=== PATIENT | female | born 1945 | race Caucasian/White ===

== ENCOUNTER 2017-12-28 05:52 | Inpatient (IN) ==
[2017-12-28] MEDS ORDERED: Chlorhexidine Gluconate 2% 1 Pack (2 Cloths) TOPICAL SCH (06:15)
[2017-12-28] MEDS ORDERED: Metoprolol Tartrate 25 MG Tablet PO SCH (06:15)
[2017-12-28] MEDS ORDERED: Dexamethasone Inj 20 MG/5 ML Vial IV.PUSH ONE (06:18)
[2017-12-28] MEDS ORDERED: Chlorhexidine 4% Topical 120 APPLIC/120 ML Bottle TOPICAL SCH (06:30)
[2017-12-28] MEDS ORDERED: ceFAZolin 2 GM/NS 100 ML IV IV.SIG SCH ×2 (07:00)
[2017-12-28] MEDS ORDERED: Sodium Chlor 0.9% Inj 500 ML IV.SIG SCH (07:00)
[2017-12-28] MEDS ORDERED: Vancomycin Inj 1 GM/200 ML PIGGYBACK IV.SIG SCH (07:00)
[2017-12-28] MEDS ORDERED: SODIUM CHLOR 0.9% IV.SIG SCH (08:30)
[2017-12-28] MEDS ORDERED: TRANEXAMIC ACID IV.SIG SCH (08:30)
[2017-12-28] MEDS ORDERED: Sodium Chlor 0.9% Inj 73.07 ML, Ropivacaine 0.5% PF Inj 24.63 ML, Ketorolac Inj 30 MG, ... P-ARTICULR SCH ×5 (08:30)
[2017-12-28] MEDS ORDERED: Naloxone Inj 0.4 MG/ML Vial ONE (10:09)
[2017-12-28] MEDS ORDERED: FEXOFENADINE PSEUDOEPHEDRINE PO PRN (10:10)
[2017-12-28] MEDS ORDERED: Aluminum/Magnesium/Simethacone Susp 30 ML UDC PO PRN (10:14)
[2017-12-28] MEDS ORDERED: Post-op Orders (for Pharmacy) OTHER STA (10:14)
[2017-12-28] MEDS ORDERED: Morphine Inj 4 MG/ML Vial IV.PUSH PRN (10:14)
[2017-12-28] MEDS ORDERED: SODIUM CHLOR 0.9% IV.SIG ONE (10:14)
[2017-12-28] MEDS ORDERED: Bisacodyl 10 MG Supp RECTAL PRN (10:14)
[2017-12-28] MEDS ORDERED: TRANEXAMIC ACID IV.SIG ONE (10:14)
[2017-12-28] MEDS ORDERED: Sod Chloride 0.9% Inj 1,000 ML IV.CONT SCH (10:15)
--- NOTE | 2017-12-28 10:18 | P.OP ---
- Preoperative Diagnosis (1) Osteoarthritis of right knee - Postoperative Diagnosis (1) Osteoarthritis of right knee Date of procedure: 12/28/17 Procedure: Right total knee arthroplasty Surgeon: Julius Burt MD Electronics Hardware Design Engineer: MARIO Graves The surgical procedure was assisted by my Advanced Registered Nurse Practitioner. My MECHANICAL INTERN presence was necessary throughout this case for the manipulation and positioning of the surgical extremity. My MECHANICAL INTERN was assisting me throughout the duration of this procedure. The skill set of an Advance Registered Nurse Practitioner was medically necessary to complete this procedure. During the surgical case, the surgical dressing maker was working at the back table and the Advance Registered Nurse Practitioner was directly assisting me. Operation and Findings: IMPLANTS: DePuy Attune: Patella: size 35. Femur, posterior stabilized size 6. Tibia, rotating platform size 5. Tibial insert, rotating platform, posterior stabilized size 7 mm thickness. ESTIMATED BLOOD LOSS: 75 cc TOURNIQUET TIME: 45 minutes at 250 mmHg pressure. JUSTIFICATION FOR PROCEDURE: The patient has end-stage osteoarthritis to the knee. There is an attached conservative measures pathway form in the chart that describes the nonoperative measures that were undertaken prior to consideration of surgical management. The patient understood the risks and benefits of surgical management. See my office notes for further details PROCEDURE: The patient was brought back to the operative theatre. Adequate anesthesia was obtained. The patient received intravenous vancomycin and Ancef. The lower extremity was prepped and draped in the usual sterile fashion.The leg was exsanguinated, the tourniquet was raised. A standard anterior incision was performed followed by medial parapatellar arthrotomy was performed. End-stage arthritis was identified. Osteotomy of the patella was performed. We drilled holes for the patella. We trialed the patella component. We placed an intramedullary guide into the distal femur. We ultimately resected 12 mm off of the distal femur in 5 degrees of valgus. The remnants of the ACL and PCL were resected. Osteotomy of the proximal tibia was performed, resecting 5 mm off of the medial side. This was done with 3 degrees of posterior slope using an extramedullary guide. The distal end of the guide was placed in the mid aspect of the ankle. The femur was sized, and four chamfer cuts were completed in 3 of external rotation. We then cut the central box in the distal femur to replace the PCL. We resected the remnants of the menisci and removed osteophytes off of the femur and tibia. We then trialed the knee. We punched the tibia for the keel, and then used standard technique to cement in components. Excess cement was removed. We trialed the knee again and the final polyethylene thickness was chosen to provide extension to 0 degrees, and flexion of 140 degrees to gravity. The ligaments were appropriately balanced. Lateral release was necessary to obtain excellent patellofemoral tracking. The tourniquet was released and adequate hemostasis was obtained. An intra- articular injection of a ropivacaine cocktail was injected. The posterior knee was inspected for excess cement, which was removed. The final polyethylene was put into position after thorough irrigation. We then closed deep fascia with a #2 Stratafix followed by skin with 2-0 Vicryl followed by Dermabond dressing. Postop plan is to weight-bear as tolerated. DVT prophylaxis will be performed with SCDs, BARB ware, early mobilization, and Lovenox followed by aspirin.
[2017-12-28] MEDS ORDERED: fentaNYL Citrate Inj 100 MCG/2 ML Ampul ONE (10:48)
--- NOTE | 2017-12-28 11:25 | XR ---
EXAM DATE: 12/28/2017 11:15 AM EDT AGE/SEX: 72 years / Female INDICATIONS: Post op right knee surgery. CLINICAL DATA: This is the patient's initial encounter. Patient reports that signs and symptoms have been present for 1 day and indicates a pain score of Nonresponsive. MEDICAL/SURGICAL HISTORY: Non-responsive. Non-responsive. COMPARISON: [facility], XR KNEE COMPLETE, RIGHT, 09/26/2014. . FINDINGS: AP and lateral views of the right knee were obtained and demonstrate the patient status post arthropl asty. The tibial and femoral components are intact and in normal alignment. There are postoperative c hanges involving the patella. There is anterior soft tissue swelling and multiple small gas collectio ns soft tissues. CONCLUSION: Expected postsurgical changes status post arthroplasty. Electronically signed by: Perez Vargas MD 12/28/2017 11:23 AM EDT
[2017-12-28] MEDS ORDERED: Phenylephrine/NS 1000 MCG/10ML Syringe IV.PUSH ONE (12:00)
[2017-12-28] MEDS ORDERED: Lidocaine PF 1% Inj 5 ML Syringe INFILTRATN ONE (12:00)
[2017-12-28] MEDS ORDERED: Neostigmine Inj 5 MG/5 ML Syringe IV.PUSH ONE (12:00)
[2017-12-28] MEDS ORDERED: Glycopyrrolate Inj 1 MG/5 ML Syringe IV.PUSH ONE (12:00)
[2017-12-28] MEDS ORDERED: ceFAZolin 2 GM Premix Inj 2 GM/50 ML PIGGYBACK IV.SIG ONE (13:42)
[2017-12-28] MEDS: Glimepiride 4 MG Tablet PO SCH (20:23)
[2017-12-28] MEDS: Multivitamin/Minerals Therapeutic Tablet PO SCH (20:23)
[2017-12-28] MEDS: Senna/Docusate Sodium 8.6/50 MG Tablet PO SCH (20:23)
[2017-12-28] MEDS ORDERED: Zolpidem Tartrate 5 MG Tablet PO PRN (21:00)
[2017-12-29 05:00] LABS: Hematocrit 32.3 % (35.0-46.0); Hemoglobin 11.4 gm/dL (11.6-15.3)
[2017-12-29] MEDS: Glimepiride 4 MG Tablet PO SCH (07:49)
[2017-12-29] MEDS ORDERED: Dexamethasone Inj 20 MG/5 ML Vial IV.PUSH ONE (08:00)
[2017-12-29] MEDS: Senna/Docusate Sodium 8.6/50 MG Tablet PO SCH (08:04)
[2017-12-29] MEDS: Multivitamin/Minerals Therapeutic Tablet PO SCH (08:04)
--- NOTE | 2017-12-29 08:16 | P.DCO ---
- Physical Therapy Physical Therapy: Gait training, Transfer training, bed to chair Knee: Total knee Right Lower Extremity Weight Bearing: Weight bearing as tolerated Right Lower Extremity Range of Motion: Active ROM - Nursing Nursing: Uma hassan Dressing changes: Do not change dressing Additional instructions: First dressing in the office - Certification Need for Home Health services: I have seen patient Grace Avery on 12/29/17. My clinical findings support the need for the requested home health care services because: Need for Home Health Services: Limited ability to care for self, High risk of falls Homebound Certification: I certify that my clinical findings support that this patient is homebound because: Homebound Certification: Post-op weakness, Unsteady gait/balance
[2017-12-29] MEDS ORDERED: FLUoxetine 10 MG Capsule PO SCH (09:00)
[2017-12-29] MEDS ORDERED: Estradiol 1 MG Tablet PO SCH (09:00)
[2017-12-29] MEDS ORDERED: AMLODIPINE VALSARTAN PO SCH (09:00)
[2017-12-29] MEDS ORDERED: amLODIPine 5 MG Tablet PO SCH (09:00)
[2017-12-29] MEDS ORDERED: Pantoprazole Sodium 20 MG DR Tablet PO SCH (09:00)
[2017-12-29] MEDS ORDERED: Enoxaparin Inj 40 MG/0.4 ML Syringe SQ SCH (10:00)
[2017-12-29 12:34] VITALS: BP 133/62; PULSE 88; RESP 16; TEMP 99.6; O2SAT 92
--- NOTE | 2017-12-31 21:49 | P.DS ---
Date of admission: 12/28/17 05:52 Primary care physician: Oswaldo Poon MD Attending physician on discharge: Julius Burt Anticipated date of discharge: 12/29/17 Brief History from admission: The patient has a history of right knee severe osteoarthritis. The patient was admitted to the hospital for a right total knee arthroplasty. DS: Diagnosis - Discharge Diagnosis (1) Status post total knee replacement, right Status: Acute Diagnosis: Principal (2) Osteoarthritis of right knee Status: Acute Diagnosis: Principal DS: Summary Hospital Course: The patient was admitted to the hospital for severe osteoarthritis of the [right ] knee to have a [right] total knee arthroplasty. The patient's surgery went well with no complication. The patient is on a diabetic diet. The patient's DVT prophylaxis includes use of [Lovenox followed by aspirin]. The patient is weightbearing as tolerated. The patient was discharged [home with home health] and will follow up in the office with Dr. Burt and/or MARIO Jiang as previously scheduled. - Time Spent with Patient Total time spent providing and/or coordinating discharge services: Greater than 30 minutes Exam Narrative: The patient was discharged prior to evaluation today by the undersigned. The patient had a clean, dry, and intact dressing per conversation with the nurse. The patient's postop labs were reviewed prior to discharge by the undersigned. The patient was instructed in her postop plan of care prior to surgery and reinforced today by staff per the undersigned's request. The patient was given her postop medications prior to surgery. The patient understands that home health will be initiated tomorrow. The patient also understands she can contact the office at any time and speak to the on-call physician with any concerns or questions. Results Procedures completed during hospitalization: Right total knee arthroplasty - Impressions ITS Impressions Knee X-Ray 12/28/17 10:23 CONCLUSION: Expected postsurgical changes status post arthroplasty. Discharge Plan - Discharge Disposition Patient Disposition: W/Home Health Service - Discharge Condition Condition: Stable - Discharge Order Discharge Orders: Discharge Order (Routine); Ordered 12/29/17 Ordered By: Mike Lind - Discharge Details Anticipated Discharge Date: 12/29/17 - Physicians Team Primary Care Provider: Oswaldo Poon V Attending Provider: Julius Burt Other Providers: [employer] - Rxs /Orders / Referrals /Forms Prescriptions: Continue amlodipine-valsartan 5-160 mg Tablet 1 tab PO DAILY estradiol 0.5 mg Tablet 0.5 mg PO DAILY fexofenadine-pseudoephedrine [Rohini-D 24 Hour] 180-240 mg Tablet Extended Release 24 Hr 1 tab PO QAM PRN (Reason: Congestion) fluoxetine 10 mg Capsule 10 mg PO DAILY glimepiride 4 mg Tablet 4 mg PO BID metformin 1,000 mg Tablet 1,000 mg PO BID multivitamin [Daily Multi-Vitamin] Tablet 1 tab PO DAILY omeprazole 10 mg Capsule,Delayed Release(Dr/Ec) 10 mg PO DAILY simvastatin 5 mg Tablet 5 mg PO QPM thyroid (pork) [[place] Thyroid] 90 mg Tablet 90 mg PO DAILY Discontinued aspirin [Aspirin Low Dose] 81 mg Tablet,Delayed Release (Dr/Ec) 81 mg pe PO DAILY Ambulatory Orders / Order Sets / DME: Adjustable Commode 3-in-1 (1 each) (Routine) Location: Determined by Patient Ordered By: Mike Lind CPM - Continuous Passive Motion Machine (1 each) (Routine) Location: Determined by Patient Ordered By: Mike Lind Walker With Front Wheels (1 each) (Routine) Location: Determined by Patient Ordered By: Mike Lind Referrals: Julius Burt MD [Physician] - See Instructions (F/u in the office as previously scheduled with Dr. Burt or Parker [facility]) Oswaldo Poon MD [Primary Care Provider] - See Instructions - Discharge Instructions Patient Printed Instructions: How to Choose and Use a Walker (GEN), BARB Hose ( DC), Continuous Passive Motion Machine (DC), Knee Replacement (DC) - Post Discharge Care Plan Care Plan Goals: Discharge Care Plan Goals for Total Knee Replacement You have undergone knee replacement surgery. Your doctor replaced your painful joint with an artificial joint to relieve pain and restore movement. Here are some goals to help you heal well. Directions to Meet your Goals: 1. Activity & Exercises: * Take pain medicine as directed by your doctor. * Sit in chairs with arms. The arms make it easier for you to stand up or sit down. * Dont sit for more than 30 to 45 minutes at one time. * Nap if you are tired, but dont stay in bed all day. * Sleep with a pillow under your ankle, not your knee. Be sure to change the position of your leg during the night. * Wear the support stockings you were given in the hospital as directed by your surgeon. 2. Prevent Falls/Injury: The gutiérrez to successful recovery is movement with walking and exercising your knee as directed by your doctor. * Arrange your household to keep the items you need handy. Keep everything else out of the way. * Remove items that may cause you to fall, such as throw rugs and electrical cords. * Use nonslip bath mats, grab bars, an elevated toilet seat, and a shower chair in your bathroom * Sit on a shower stool or chair when you shower to keep from falling. * Until your balance, flexibility, and strength improve, use a cane, crutches, a walker, handrails, or someone to help you. * Keep your hands free by using a backpack, anabela pack, apron, or pockets to carry things * Walk up and down stairs with support. Try one step at a time. Use the railing if possible. * Dont drive until your doctor says its OK. * Dont drive while you are taking opioid pain medicine. 3. Precautions: * Prevent infection. Any infection will need to be treated immediately. Call your doctor right away if you think you might have an infection. * Tell your dentist that you have an artificial joint and take antibiotics as prescribed before any dental work. * Tell all your healthcare providers about your artificial joint before any medical procedure. * Maintain a healthy weight. Get help to lose any extra pounds. Added body weight puts stress on the knee. * Your medications may include blood-thinning medicine to prevent blood clots or antibiotics to prevent infection-prevent any falls or cuts 4. Incision Care: * Prevent infection by washing your hands often. If an infection occurs, it will need to be treated right away. * Call your doctor right away if you think you may have an infection. Symptoms include a fever or an incision that leaks white, green, or yellow fluid. * Don't soak your incision in water until your doctor says its OK. This means no hot tubs, bathtubs, or swimming pools. * Follow your doctor's instructions for changing the dressing. * Dont rub the incision, or apply creams or lotions to it. * If you notice any redness or drainage around the bandage site, contact your surgeon's office immediately. 5. Follow-Up: Do Not miss your follow-up appointment. Keep up with all your appointments and yearly check ups When to call your doctor: Call your doctor right away if you have: Fever of 100.4F (38C) or higher, or as directed by your doctor Shaking chills Stiffness, or inability to move the knee Increased swelling in your leg Increased redness, tenderness, or swelling in or around the knee incision Drainage from the knee incision Increased knee pain Call 911: Call 911 right away if you have: Chest pain Shortness of breath Any pain or tenderness in your calf
== END 2017-12-29 14:10 | disposition home health service (06) ==
LOC: HSDI 05:52 → N06 14:47
PROVIDERS: ADMIT Orthopaedic Surgery; ATTEND Orthopaedic Surgery